=== PATIENT | female | born 1970 | race Two or more races ===

== ENCOUNTER → 2017-03-01 | Outpatient (CLI) | payer SELFPAY ==
[2016-09-30 14:41] VITALS: BP 108/75
[~2017-03-01] MED LIST: ASCO100T4 PO; CONTRAST GIVEN MC PRN; IOHEXOL 240 MG/ML 50ML VIAL. PO ONE; IOHEXOL 300 MG/ML 75 ML VIAL IV ONE; LISI10TA2 PO; OMEP20TA63 PO
--- NOTE | 2017-03-01 13:33 | RAD ---
CT pelvis with IV contrast History: Post defecation rectal pain for 4 months. Comparison: None. Technique: After administration of oral and intravenous contrast, 75 mL Omnipaque 300, helical CT of the pelvis was performed. Axial, sagittal, and coronal reconstructions were obtained. One or more of the following individualized dose reduction techniques were utilized for the study: Automated exposure control Adjustment of mA and/or kV according to patient's size Use of iterative reconstruction technique. Findings: Visualized bowel is unremarkable. Urinary bladder is unremarkable. The uterus is absent. No free air or free fluid is seen in the abdomen or pelvis. There is no evidence of rectal wall thickening. No perirectal or perianal inflammatory change is identified. Impression: No acute abnormality identified in the pelvis.
== END | disposition home or self-care (01) ==
LOC: CT 10:58
PROVIDERS: ATTEND Family Medicine
DX: K62.89 Other specified diseases of anus and rectum (principal); I10 Essential (primary) hypertension
CPT/HCPCS: 74170; Q9966; Q9967